=== PATIENT | male | born 1965 | race Caucasian/White ===

== ENCOUNTER 2019-12-30 21:16 | Inpatient (IN) | payer SELFPAY ==
[~2019-12-30] VITALS: Ht 190.5 cm; Wt 131.1 kg
[2019-12-30 21:16] VITALS: BP_SYST 130
[2019-12-30] MEDS ORDERED: ACETAMINOPHEN 500 MG TABLET PO ONE (22:15)
[2019-12-30 22:16] LABS: CALCIUM 8.3 mg/dL (8.4-11.0); CREATININE 1.56 mg/dL (0.55-1.30); POTASSIUM 4.3 mmol/L (3.5-5.1)
[2019-12-30 22:18] LABS: INR 1.2 (0.80-1.20)
[2019-12-30 22:22] LABS: TOTAL BILIRUBIN 1.3 mg/dL (0.0-1.0)
[2019-12-30 22:30] LABS: BASOPHILS # (AUTO) 0.1 K/uL (0.0-0.2); BASOPHILS % (AUTO) 0.7 % (0.0-2.0); EOSINOPHILS % (AUTO) 0.1 % (0.0-4.0); HEMATOCRIT 41.5 % (36-54); HEMOGLOBIN 13.8 g/dL (14.0-18.0); LYMPHOCYTES # (AUTO) 1.6 K/uL (1.0-5.5); LYMPHOCYTES % (AUTO) 9.6 % (20.5-51.5); MEAN CORPUSCULAR HEMOGLOBIN 29 pg (27-31); MEAN CORPUSCULAR HGB CONC 33 % (32-36); MEAN CORPUSCULAR VOLUME 86 fL (79.0-98.0); MONOCYTES # (AUTO) 1.8 K/uL (0.0-1.0); MONOCYTES % (AUTO) 10.5 % (1.7-9.3); NEUTROPHILS # (AUTO) 13.7 K/uL (1.8-7.7); NEUTROPHILS % (AUTO) 79.1 % (40.0-70.0); PLATELET COUNT (AUTO) 231 K/uL (130-430); RED BLOOD CELL COUNT(AUTO) 4.81 MIL/uL (4.2-6.2); RED CELL DISTRIBUTION WIDTH 14.2 % (9.0-15.0); WHITE BLOOD COUNT (AUTO) 17.3 K/uL (4.8-10.8)
[2019-12-30] MEDS ORDERED: VANCOMYCIN HCL 1,000 MG in NS 250 ML IV ONE (22:45)
[2019-12-30] MEDS ORDERED: cefTRIAXone 1 GM in D5W 50 ML IV ONE (22:45)
[2019-12-30] MEDS ORDERED: NACL 0.9% 1,000 ML IV ONE (23:00)
[2019-12-30] MEDS ORDERED: VANCOMYCIN HCL 1000 MG/VIAL IV ONE (23:05)
[2019-12-30] MEDS ORDERED: cefTRIAXone 1 GM VIAL ONE (23:05)
[2019-12-31 01:23] VITALS: BP_SYST 106
[2019-12-31] MEDS ORDERED: NACL 0.9% 1,000 ML IV SCH (07:25)
[2019-12-31] MEDS ORDERED: ONDANSETRON HCL 4 MG/2 ML VIAL IVP PRN (07:30)
[2019-12-31] MEDS ORDERED: ACETAMINOPHEN 500 MG TABLET PO PRN (07:30)
[2019-12-31] MEDS ORDERED: DOCUSATE SODIUM 100 MG/10 ML UDC PO PRN (07:30)
[2019-12-31] MEDS ORDERED: NALOXONE HCL 0.4 MG/ML AMP (NARCAN) IVP PRN (07:30)
[2019-12-31] MEDS ORDERED: MORPHINE 2 MG/ML INJ. SYRINGE IVP PRN (07:30)
[2019-12-31] MEDS ORDERED: ZOLPIDEM TARTRATE 5 MG TABLET PO PRN (07:30)
[2019-12-31] MEDS ORDERED: FUROSEMIDE 40 MG/4 ML VIAL IVP ONE (07:30)
[2019-12-31] MEDS ORDERED: HYDROcodone/ACETAMIN 7.5-325 MG TAB PO PRN (07:30)
[2019-12-31 08:00] VITALS: BP_SYST 118
[2019-12-31] MEDS: ATORVASTATIN 10 MG TABLET PO SCH (08:44)
[2019-12-31] MEDS: LISINOPRIL 20 MG TABLET PO SCH (08:44)
[2019-12-31] MEDS: PANTOPRAZOLE SODIUM 40 MG TAB PO SCH (08:45)
[2019-12-31 08:51] LABS: ALBUMIN 2.8 g/dL (3.4-4.8); CALCIUM 8.4 mg/dL (8.4-11.0); CREATININE 1.59 mg/dL (0.55-1.30); FREE T4 (FREE THYROXINE) 0.7 ng/dL (0.6-1.6); PHOSPHORUS 3.9 mg/dL (2.7-4.5); POTASSIUM 3.8 mmol/L (3.5-5.1); THYROID STIMULATING HORMONE 0.93 uIu/mL (0.34-4.82); TOTAL BILIRUBIN 0.9 mg/dL (0.0-1.0)
[2019-12-31] MEDS ORDERED: METOPROLOL TARTRATE 25 MG TABLET PO SCH (09:00)
[2019-12-31] MEDS ORDERED: HEPARIN SODIUM,PORCINE 5,000 UNITS/ML VIAL SUBCUT SCH (09:00)
[2019-12-31 12:00] VITALS: BP_SYST 114
[2019-12-31] MEDS ORDERED: APIXABAN 2.5 MG TABLET PO ONE (13:30)
[2019-12-31 16:00] VITALS: BP_SYST 115
[2019-12-31] MEDS: METOPROLOL TARTRATE 50 MG TABLET PO SCH (21:00)
[2019-12-31] MEDS: APIXABAN 2.5 MG TABLET PO SCH (21:00)
[2019-12-31] MEDS: FUROSEMIDE 40 MG/4 ML VIAL IVP SCH (21:00)
[2020-01-01 08:00] VITALS: BP_SYST 125
[2020-01-01 08:00] LABS: BILIRUBIN,URINE NEGATIVE (NEGATIVE); CLARITY/URINE CLEAR (CLEAR); COLOR,URINE YELLOW (YELLOW); GLUCOSE,URINE NEGATIVE (NEGATIVE); KETONES,URINE NEGATIVE (NEGATIVE); LEUKOCYTE ESTERASE ,URINE TRACE (NEGATIVE); NITRITE, URINE NEGATIVE (NEGATIVE); PROTEIN URINE NEGATIVE (NEGATIVE)
[2020-01-01 08:08] LABS: BLOOD, URINE TRACE (NEGATIVE)
[2020-01-01 08:19] LABS: BARBITURATE, URINE NEGATIVE (NEG <=200); URINE AMPHETAMINE POSITIVE (NEG <=500)
[2020-01-01 08:20] LABS: BENZODIAZEPINE, URINE NEGATIVE (NEG <=150); CANNABINOID, URINE NEGATIVE (NEG <=50); COCAINE, URINE NEGATIVE (NEG <=150); METHAMPHETAMINES SCREEN,URINE POSITIVE (NEG <=500); OPIATE, URINE NEGATIVE (NEG <=100); PHENCYCLIDINE SCREEN,URINE NEGATIVE (NEG <=25); UR TRICYCLIC ANTIDEPRESSANTS NEGATIVE (NEG <=300); URINE METHADONE NEGATIVE (NEG <=200); URINE OXYCODONE SCREEN NEGATIVE (NEG <=100); URINE PROPOXYPHENE SCREEN NEGATIVE (NEG <=300)
[2020-01-01 08:24] LABS: BACTERIA,URINE FEW /HPF (None Seen); MUCUS,URINE 1+ /LPF (None Seen)
[2020-01-01] MEDS ORDERED: FURO-149 PO (08:27)
[2020-01-01] MEDS ORDERED: METO-442 PO (08:27)
[2020-01-01] MEDS ORDERED: LISI-600 PO (08:27)
[2020-01-01] MEDS ORDERED: APIX5TAB PO (08:27)
[2020-01-01] MEDS ORDERED: POTA10TA15 PO (08:27)
[2020-01-01] MEDS ORDERED: CEPH-568 PO (08:49)
[2020-01-01 08:54] LABS: BASOPHILS # (AUTO) 0.1 K/uL (0.0-0.2); BASOPHILS % (AUTO) 0.7 % (0.0-2.0); EOSINOPHILS # (AUTO) 0.3 K/uL (0.0-0.4); EOSINOPHILS % (AUTO) 2.4 % (0.0-4.0); HEMATOCRIT 41.7 % (36-54); LYMPHOCYTES # (AUTO) 2.8 K/uL (1.0-5.5); MEAN CORPUSCULAR HEMOGLOBIN 29 pg (27-31); MEAN CORPUSCULAR HGB CONC 34 % (32-36); MEAN CORPUSCULAR VOLUME 87 fL (79.0-98.0); MONOCYTES % (AUTO) 17.1 % (1.7-9.3); NEUTROPHILS # (AUTO) 6.5 K/uL (1.8-7.7); NEUTROPHILS % (AUTO) 55.8 % (40.0-70.0); PLATELET COUNT (AUTO) 250 K/uL (130-430); RED BLOOD CELL COUNT(AUTO) 4.79 MIL/uL (4.2-6.2); WHITE BLOOD COUNT (AUTO) 11.6 K/uL (4.8-10.8)
[2020-01-01] MEDS ORDERED: BALSAM PERU/CASTOR OIL 60 GM OINT...G. TP SCH (09:00)
[2020-01-01] MEDS: FUROSEMIDE 40 MG/4 ML VIAL IVP SCH (09:00)
[2020-01-01] MEDS ORDERED: POTASSIUM CHLORIDE 20 MEQ TAB.PRT.SR PO PRN (09:00)
[2020-01-01] MEDS: METOPROLOL TARTRATE 50 MG TABLET PO SCH (09:11)
[2020-01-01] MEDS: ATORVASTATIN 10 MG TABLET PO SCH (09:11)
[2020-01-01] MEDS: APIXABAN 2.5 MG TABLET PO SCH (09:11)
[2020-01-01] MEDS: PANTOPRAZOLE SODIUM 40 MG TAB PO SCH (09:12)
[2020-01-01] MEDS: LISINOPRIL 20 MG TABLET PO SCH (09:12)
[2020-01-01 09:19] LABS: ALBUMIN 2.8 g/dL (3.4-4.8); CALCIUM 8.7 mg/dL (8.4-11.0); CREATININE 1.63 mg/dL (0.55-1.30); POTASSIUM 3.9 mmol/L (3.5-5.1); TOTAL BILIRUBIN 0.4 mg/dL (0.0-1.0)
[2020-01-01 10:37] VITALS: BP_SYST 137
== END 2020-01-01 11:55 | disposition home or self-care (01) | DRG 871 ==
LOC: SED 21:16 → STU 12-31 00:22
PROVIDERS: ADMIT Family Medicine; ATTEND Family Medicine
DX: A41.9 Sepsis, unspecified organism (principal); I26.99 Other pulmonary embolism without acute cor pulmonale; N17.0 Acute kidney failure with tubular necrosis; E44.0 Moderate protein-calorie malnutrition; E87.1 Hypo-osmolality and hyponatremia; I42.9 Cardiomyopathy, unspecified; I82.401 Acute embolism and thrombosis of unspecified deep veins of right lower extremity; L03.115 Cellulitis of right lower limb; L03.116 Cellulitis of left lower limb; L03.119 Cellulitis of unspecified part of limb; N04.9 Nephrotic syndrome with unspecified morphologic changes; F15.90 Other stimulant use, unspecified, uncomplicated; E66.01 Morbid (severe) obesity due to excess calories; I50.9 Heart failure, unspecified; I87.8 Other specified disorders of veins; I89.0 Lymphedema, not elsewhere classified; K74.60 Unspecified cirrhosis of liver; Z20.828 Contact with and (suspected) exposure to other viral communicable diseases; Z79.01 Long term (current) use of anticoagulants; Z87.891 Personal history of nicotine dependence; Z99.2 Dependence on renal dialysis; Z56.0 Unemployment, unspecified; Z68.36 Body mass index [BMI] 36.0-36.9, adult
CPT/HCPCS: 36415; 71045; 78579; 78580-TC; 80053; 80061; 80307; 81000-TC; 82150-TC; 82550-TC; 83036; 83605; 83690-TC; 83735-TC; 83874; 83880; 84100-TC; 84439; 84443-TC; 84484; 85025; 85379; 85384-TC; 85610-TC; 86140; 86710; 87040-TC; 87086; 87186-TC; 93005; 93306; 93970; 96365; 96368; 99285; A9539; A9540; G0378; J0696; J1644; J1940; J3370; J7030; J7060; U0003-CS